=== PATIENT | female | born 2000 | race Caucasian/White ===

== ENCOUNTER 2020-09-19 16:36 | Emergency (ER) | payer OTHER ==
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
[2020-09-19 17:25] VITALS: BP 124/85
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
== END 2020-09-19 19:58 | disposition home or self-care (01) ==
LOC: ED 16:36
DX: S92.411A Displaced fracture of proximal phalanx of right great toe, initial encounter for closed fracture (principal); Z79.899 Other long term (current) drug therapy; W22.8XXA Striking against or struck by other objects, initial encounter; Y93.89 Activity, other specified; Y92.89 Other specified places as the place of occurrence of the external cause; Y99.8 Other external cause status